=== PATIENT | male | born 1975 | race American Indian/Alaskan Native ===

== ENCOUNTER 2017-03-09 21:07 | Emergency (ER) | payer BC, OTHER ==
[~2017-03-09] VITALS: Ht 177.8 cm; Wt 93.0 kg
[~2017-03-09 21:07] MED LIST: AMITRIPTYLINE100 MG PO; AUGMENTIN 875-1 EACH PO; BACTRIM DS TAB1 EACH PO; CIPROFLOXACIN250 MG PO; CIPROFLOXACIN500 MG PO; CLARITIN10 M2 PO; LAMICTAL (BLUE)25 MG PO; LISINOPRIL5 MG PO; PROPANOLOL; PROPRANOLOL HCL10 MG PO
[2017-03-10] MEDS ORDERED: GUAIFENESIN AC473 ML PO (00:21)
== END 2017-03-10 00:37 | disposition home or self-care (01) ==
LOC: ED 21:07
DX: J20.9 Acute bronchitis, unspecified (principal); J01.90 Acute sinusitis, unspecified; F41.9 Anxiety disorder, unspecified
CPT/HCPCS: 81001; 87081; 87880; 99283

== ENCOUNTER 2018-02-12 02:39 | Emergency (ER) | payer BC, OTHER ==
[~2018-02-12] VITALS: Ht 177.8 cm; Wt 90.7 kg
[~2018-02-12 02:39] MED LIST changes: +GUAIFENESIN AC473 ML PO
== END 2018-02-12 04:52 | disposition home or self-care (01) ==
LOC: ED 02:39
DX: F10.129 Alcohol abuse with intoxication, unspecified (principal); Y90.8 Blood alcohol level of 240 mg/100 ml or more
CPT/HCPCS: 70450; 80053; 85025; 99284; G0480; J7030

== ENCOUNTER 2021-08-25 18:00 | Inpatient (IN) | payer BC, OTHER ==
[~2021-08-25] VITALS: Ht 177.8 cm; Wt 99.2 kg
--- OUTSIDE RECORDS SUMMARY | 2021-08-25 18:02 | XMS ---
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 PHONE: [phone] Jacoby has no Care Guidelines for this patient. Care History Medical/Surgical 10/07/[address] [facility] - [facility] ELIG[facility], \T\middot;\T\nbsp; PLEASE REFER PATIENT TO [facility] FOR NON EMERGENT MEDICAL NEEDS. \T\middot;\T\nbsp; [facility] CAN SEE PATIENTS SAME DAY FOR APTS IF PATIENT CALLS FIRST THING IN THE MORNING. E.D. VISIT COUNT (12 MO.) [address] [facility] TOTAL 2 NOTE: Visits indicate total known visits. ED/UCC VISIT TRACKING (12 MO.) 08/25/2021 18:01 [facility] TYPE: Emergency COMPLAINT: - SEIZURE 10/05/2020 21:20 [facility] TYPE: Emergency COMPLAINT: - R HAND INJURY, SWELLING DIAGNOSES: - Other foreign body or object entering through skin, initial encounter - Abrasion of right hand, initial encounter - Abrasion of right hand, initial encounter - Civilian activity done for income or pay - Local infection of the skin and subcutaneous tissue, unspecified INPATIENT VISIT TRACKING (12 MO.) No inpatient visits to display in this time frame [email or web address]
--- NOTE | 2021-08-28 11:25 | EKG ---
[facility] [address] [place], [place] [address] Signed Sinus tachycardia Otherwise normal ECG When compared with ECG of 16-MAY-2016 22:51, No significant change was found Confirmed by GERALDINE TORRES MD ([id number]) on 08/28/2021 11:25:06 AM Electronically Signed By: GERALDINE TORRES MD 08/28/21 1125 PATIENT NAME: MAYORGATULIO Electrocardiogram DATE OF : 75 PHYSICIAN: GERALDINE TORRES MD REPORT #: [id number] REPORT IS CONFIDENTIAL AND NOT TO BE RELEASED WITHOUT AUTHORIZATION
== END 2021-08-26 07:55 | disposition home or self-care (01) | DRG 897 ==
LOC: ED 18:00 → CCU 22:21
PROVIDERS: ADMIT Internal Medicine; ATTEND Internal Medicine
DX: F10.230 Alcohol dependence with withdrawal, uncomplicated (principal); F41.9 Anxiety disorder, unspecified; I10 Essential (primary) hypertension; E86.0 Dehydration; Z20.822 Contact with and (suspected) exposure to COVID-19
CPT/HCPCS: 70450; 80048; 80053; 82553; 83690; 83735; 84484; 93005; 93010; 96374; 96375; 96376; 99285-25; J2060; J2405; J7030; J7121; U0003

== ENCOUNTER 2022-11-23 20:17 | Emergency (ER) | payer BC, OTHER ==
[~2022-11-23] VITALS: Ht 177.8 cm; Wt 104.0 kg
[2022-11-23] MEDS ORDERED: PROPRANOLOL HCL20 MG PO (20:42)
[2022-11-23] MEDS ORDERED: LORAZEPAM0.5 MG PO (20:42)
[2022-11-23] MEDS ORDERED: CYCLOBENZAPRINE10 MG PO (21:45)
[2022-11-23] MEDS ORDERED: IBU800 MG PO (21:45)
[2022-11-23] MEDS ORDERED: LIDODERM1 EACH TOP (21:45)
[2022-11-23 22:02] VITALS: BP 119/74
--- NOTE | 2022-11-24 21:10 | EKG ---
[facility] [address] [place] [address] Signed Normal sinus rhythm Normal ECG When compared with ECG of 25-AUG-2021 19:37, Vent. rate has decreased BY 52 BPM Confirmed by Cadence Mayer MD () on 11/24/2022 9:10:13 PM Electronically Signed By: CADENCE MAYER MD 11/24/222109 PATIENT NAME: PAOLA MAYORGAJULIANA QUINONES Electrocardiogram DATE OF : 75 PHYSICIAN: CADENCE MAYER MD REPORT #: [id number] REPORT IS CONFIDENTIAL AND NOT TO BE RELEASED WITHOUT AUTHORIZATION
== END 2022-11-23 22:02 | disposition home or self-care (01) ==
LOC: ED 20:17
DX: S29.012A Strain of muscle and tendon of back wall of thorax, initial encounter (principal); I10 Essential (primary) hypertension; X58.XXXA Exposure to other specified factors, initial encounter
CPT/HCPCS: 36415; 71045; 80053; 81003; 83690; 83735; 84484; 85025; 93005; 93010; A9270

== ENCOUNTER 2023-06-25 03:47 | Emergency (ER) | payer BC, OTHER ==
[~2023-06-25] VITALS: Ht 177.8 cm; Wt 98.9 kg
[~2023-06-25 03:47] MED LIST changes: +CYCLOBENZAPRINE10 MG PO; +IBU800 MG PO; +LIDODERM1 EACH TOP; +LORAZEPAM0.5 MG PO; +PROPRANOLOL HCL20 MG PO
[2023-06-25] MEDS ORDERED: AMOX TR-K CLV1 EAC1 PO (04:00)
[2023-06-25 04:22] VITALS: BP 149/113
== END 2023-06-25 04:22 | disposition home or self-care (01) ==
LOC: ED 03:47
DX: J32.9 Chronic sinusitis, unspecified (principal); I10 Essential (primary) hypertension; Z79.899 Other long term (current) drug therapy
CPT/HCPCS: 99282